=== PATIENT | male | born 1945 | race Caucasian/White ===

== ENCOUNTER 2016-08-20 13:50 | Inpatient (IN) | payer OTHER, MEDICARE ==
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
--- NOTE | ~2016-08-20 | CN ---
Consultation Report [facility] [address] [place]. [address] NAME: ROBINA KEITA : 49 STATUS : ADM IN PAT#: [id number] AGE: 71 ADM/REG DATE : 08/20/16 MR#: [id number] REPORT SERV DATE: 08/21/16 DICTATED BY: CELESTINO RICE DATE: 08/21/16 REPORT STATUS : Draft TRANSCRIBED BY: HUMA DATE: 08/21/16 CONSULTATION DATE OF CONSULTATION: HISTORY OF PRESENT ILLNESS: This patient has a history of cancer of the distal bile duct requiring surgery on 09/29/2014 with a Whipple procedure. He has been on chemotherapy. Apparently, it was at [facility] in July and had no evidence of recurrent disease. He had a temperature up to 102 at home. He denies any recent itching. His white count here was 11,600. His bilirubin is 0.5, alkaline phosphatase 1196, elevated transaminases. PHYSICAL EXAMINATION: GENERAL: Looks comfortable. VITAL SIGNS: Blood pressure 110/70. NECK: Trachea midline. CHEST: Clear. CARDIAC: Normal. ABDOMEN: Upper abdominal scar but soft, nontender. LABORATORY DATA: Review of lab, alkaline phosphatase was 258 in June, now 1196. IMPRESSION: Possible cholangitis from possible biliary obstruction. He does have a Whipple procedure, so endoscopic therapy would be quite difficult. PLAN: We will do MRCP to look for biliary obstruction. Start on Actigall to improve bile flow. We will follow along with you. Thank you for this interesting consult. /HUMA Celestino Rice M.D. / [id number]
--- NOTE | ~2016-08-20 | DS ---
Discharge Summary [facility] [address] [place]. [address] NAME: ROBINA KEITA : 49 STATUS : DIS IN PAT#: [id number] AGE: 71 ADM/REG DATE : 08/20/16 MR#: [id number] REPORT SERV DATE: 10/04/16 DICTATED BY: REGINA KIDD II DATE: 10/03/16 REPORT STATUS : Draft TRANSCRIBED BY: MODL DATE: 10/03/16 ADMISSION DATE: 08/20/2016 DISCHARGE DATE: 08/23/2016 DISCHARGE DIAGNOSES: 1. Acute cholangitis. 2. Elevated LFTs. 3. History of cholangiocarcinoma status post Whipple with no evidence of recurrent disease. 4. Diabetes mellitus type 1. 5. Hypertension. 6. Reactive thrombocytosis. CONSULTS: Dr. Bal. BRIEF HISTORY OF PRESENT ILLNESS: The patient is a 71-year-old male with the above history who presented to [facility] due to night sweats, chills, and fever. For detailed history and physical examination, please see Alba Marcano's note from 08/20/2016. HOSPITAL COURSE: On admission, the patient's LFTs were elevated with alkaline phosphatase of 1200 and mildly elevated AST and ALT. His white count was mildly elevated at 11, and Dr. Bal was consulted. Dr. Bal ordered an MRCP which did not show any evidence of obstruction. He had previously been placed on Zosyn on admission as well. With IV fluids and Zosyn, the patient's LFTs seemed to improve. His T. bilirubin was never really elevated, and his alkaline phosphatase trended down to about 700, now his AST and ALT are within normal limits. Otherwise, at this point, the patient has no significant complaints and feels well. Tolerating his diet. Dr. Bal recommended continuing Augmentin and Actigall. Otherwise, the patient is stable for discharge, and we will continue his home medications. DISCHARGE MEDICATIONS: 1. Tylenol 1000 mg p.o. b.i.d. p.r.n. 2. Augmentin 875 mg p.o. b.i.d. 3. Amitriptyline/chlordiazepoxide one tab p.o. daily. 4. Zetia 10 mg p.o. at bedtime. 5. Lantus 18 units subcu at bedtime. 6. Humalog subcu before meals per sliding scale. 7. Multivitamin daily. 8. Benicar 40 mg p.o. at bedtime. 9. Crestor 5 mg p.o. at bedtime. 10.Flomax 0.4 mg p.o. at bedtime. 11.Actigall 600 mg p.o. b.i.d. 12.Creon 24,000 cap 4 caps p.o. before meals. DISCHARGE INSTRUCTIONS: The patient will follow with Dr. Clark 09/13/2016. Discharge Summary [address] [address] NAME: ROBINA KEITA : 49 STATUS : DIS IN PAT#: [id number] AGE: 71 ADM/REG DATE : 08/20/16 MR#: [id number] REPORT SERV DATE: 10/04/16 DICTATED BY: REGINA KIDD II DATE: 10/03/16 REPORT STATUS : Draft TRANSCRIBED BY: HUMA DATE: 10/03/16 EMIGDIO/HUMA Regina Kidd II, MD / [id number] CC: MD Toney Bermudez II, M.D.
[~2016-08-20 13:50] MED LIST: AMIT10 PO; AMITRIP PO; ASAB PO; BENICAR HCT1 TA1 PO; BENICAR20 PO; BENICAR40 PO; CDP PO; CREON12000 UNT PO; CREON24000 UNT PO; CRESTOR40 MG PO; CRESTOR5 MG PO; FLOMAX4 PO; LEVSINTAB SL; LIMBITROL1 TAB PO; MELA3 PO; METAMUCIL CAN7 OZ PO; MULTIPLE VIT PO; PEPCID40 MG PO; PROBIOTIC PO; TOPXL25 PO; VIBERZI PO; VITC500 PO; ZETIA PO
[2016-08-20] MEDS ORDERED: THERGRANM PO (17:07)
[2016-08-20] MEDS ORDERED: CRESTOR5 MG PO (17:07)
[2016-08-20] MEDS ORDERED: BENICAR40 PO (17:07)
[2016-08-20] MEDS ORDERED: AMITRIP PO (17:07)
[2016-08-20] MEDS ORDERED: CDP PO (17:07)
[2016-08-20] MEDS ORDERED: ZETIA PO (17:07)
[2016-08-20] MEDS ORDERED: FLOMAX4 PO (17:08)
[2016-08-20] MEDS ORDERED: HUMALOG SC (17:09)
[2016-08-20] MEDS ORDERED: CREON PO (17:09)
[2016-08-20] MEDS ORDERED: ACET500CAP PO (17:09)
[2016-08-20] MEDS ORDERED: LANTUS SC (17:10)
[2016-08-20 18:43] LABS: CREATININE 0.85 MG/DL (0.70-1.30); GFR AFRICAN AMERICAN 103 ML/MIN (>=60); GFR NON AFRICAN AMERICAN 89 ML/MIN (>=60)
[2016-08-20 19:09] LABS: MEAN CORPUS HGB CONC 33.8 g/dL (32.0-36.0); MEAN PLATELET VOLUME 9.9 fL (9.2-13.0); NUCLEATED RED BLOOD CELLS 0.3 /100WBC (0-0)
[2016-08-20 19:10] LABS: HEMATOCRIT 26.6 % (40.0-51.0); MEAN CORPUSCULAR HEMOGLOB 28.6 pg (26.0-34.0); MEAN CORPUSCULAR VOLUME 84.4 fL (80-100); PLATELET COUNT 936 10/3/uL (150-400); RBC DISTRIBUTION WIDTH 19.2 % (12.0-16.0); RED CELL COUNT 3.15 10/6/uL (4.7-6.1); WHITE BLOOD CELLS 11.6 10/3/uL (4.5-10.5)
[2016-08-20 19:11] LABS: MANUAL DIFF YES %
[2016-08-20 19:19] LABS: BAND NEUTROPHILS 5 %; BASOPHILS 2 %; BASOPHILS ABSOLUTE (CALC) 0.23 10/3/uL (0.0-0.16); EOSINOPHILS 1 %; EOSINOPHILS ABSOLUTE (CALC) 0.12 10/3/uL (0.0-0.53); IMMATURE GRANS ABSOLUTE (CALC) 0.23 10/3/uL (0.0-0.11); LYMPHOCYTES 15 %; LYMPHOCYTES ABSOLUTE (CALC) 1.74 10/3/uL (0.67-4.30); METAMYELOCYTES 2 %; MONOCYTES 6 %; NEUTROPHILS ABSOLUTE (CALC) 8.58 10/3/uL (2.02-8.40); SEGMENTED NEUTROPHIL (0) 69 %; TARGET CELLS OCC (1-2/OIF) (0-1/OIF); TOTAL NUCLEATED CELLS 100
[2016-08-20 19:20] LABS: TEARDROP SHAPED RBCS FEW (3-10/OIF)
[2016-08-20 19:21] LABS: BURR CELLS 1+ (3-10/OIF) (0-2/OIF); MACROCYTES 1+ (5-10/OIF) (0-5/OIF)
[2016-08-20 21:32] LABS: A/G RATIO 0.7 (0.7-1.9); ALBUMIN 2.5 G/DL (3.5-5.0); ALKALINE PHOSPHATASE 1196 U/L (45-117); BUN (BLOOD UREA NITROGEN) 12 MG/DL (6-23); CALCIUM, SERUM 8.1 MG/DL (8.5-10.4); CHLORIDE, SERUM 98 MMOL/L (96-112); CO2 (CARBON DIOXIDE) 24 MMOL/L (24-34); GLOBULIN 3.6 G/DL (2.5-4.1); GLUCOSE, SERUM 237 MG/DL (60-99); POTASSIUM, SERUM 4.4 MMOL/L (3.5-5.3); SGOT(AST) 286 U/L (5-40); SGPT(ALT) 163 U/L (5-65); SODIUM, SERUM 132 MMOL/L (135-148); TOTAL BILIRUBIN 0.5 MG/DL (0-1.2); TOTAL PROTEIN 6.1 G/DL (6.0-8.5)
[2016-08-21 05:50] LABS: ASCORBIC ACID (UR NOT ORDER) NEG (NEG); BILIRUBIN, URINE NEGATIVE (NEG); KETONE, URINE NEGATIVE (NEG); LEUKOCYTE ESTERASE(NOT OR NEG (NEG); WBC (NOT ORDERED) (RFLEX) < 1 (0-5)
[2016-08-21 17:44] LABS: A/G RATIO 0.7 (0.7-1.9); ALBUMIN 2.3 G/DL (3.5-5.0); ALKALINE PHOSPHATASE 992 U/L (45-117); BUN (BLOOD UREA NITROGEN) 11 MG/DL (6-23); CALCIUM, SERUM 8.2 MG/DL (8.5-10.4); CHLORIDE, SERUM 105 MMOL/L (96-112); CO2 (CARBON DIOXIDE) 25 MMOL/L (24-34); CREATININE 0.78 MG/DL (0.70-1.30); GFR AFRICAN AMERICAN 107 ML/MIN (>=60); GFR NON AFRICAN AMERICAN 92 ML/MIN (>=60); GLOBULIN 3.4 G/DL (2.5-4.1); GLUCOSE, SERUM 85 MG/DL (60-99); POTASSIUM, SERUM 3.7 MMOL/L (3.5-5.3); SGOT(AST) 60 U/L (5-40); SGPT(ALT) 88 U/L (5-65); SODIUM, SERUM 138 MMOL/L (135-148); TOTAL BILIRUBIN 0.3 MG/DL (0-1.2); TOTAL PROTEIN 5.7 G/DL (6.0-8.5)
[2016-08-22 05:05] LABS: HEMATOCRIT 25.3 % (40.0-51.0); HEMOGLOBIN 8.5 g/dL (13.6-17.8); MEAN CORPUS HGB CONC 33.6 g/dL (32.0-36.0); MEAN CORPUSCULAR HEMOGLOB 28.6 pg (26.0-34.0); MEAN CORPUSCULAR VOLUME 85.2 fL (80-100); MEAN PLATELET VOLUME 9.2 fL (9.2-13.0); NUCLEATED RED BLOOD CELLS 0.3 /100WBC (0-0); RBC DISTRIBUTION WIDTH 19.7 % (12.0-16.0); RED CELL COUNT 2.97 10/6/uL (4.7-6.1); WHITE BLOOD CELLS 9.9 10/3/uL (4.5-10.5)
[2016-08-22 05:07] LABS: MANUAL DIFF YES %; PLATELET COUNT 964 10/3/uL (150-400)
[2016-08-22 05:15] LABS: ANISOCYTOSIS 1+ (5-10/OIF) (0-5/OIF); BAND NEUTROPHILS 4 %; BASOPHILS 1 %; EOSINOPHILS 1 %; LYMPHOCYTES 5 %; METAMYELOCYTES 5 %; MONOCYTES 13 %; MONOCYTES ABSOLUTE (CALC) 1.29 10/3/uL (0.21-1.20); NEUTROPHILS ABSOLUTE (CALC) 7.43 10/3/uL (2.02-8.40); SEGMENTED NEUTROPHIL (0) 71 %; TOTAL NUCLEATED CELLS 100
[2016-08-22 05:31] LABS: A/G RATIO 0.6 (0.7-1.9); ALBUMIN 2.2 G/DL (3.5-5.0); BUN (BLOOD UREA NITROGEN) 11 MG/DL (6-23); CALCIUM, SERUM 7.9 MG/DL (8.5-10.4); CHLORIDE, SERUM 103 MMOL/L (96-112); CO2 (CARBON DIOXIDE) 24 MMOL/L (24-34); CREATININE 0.89 MG/DL (0.70-1.30); GFR AFRICAN AMERICAN 101 ML/MIN (>=60); GFR NON AFRICAN AMERICAN 87 ML/MIN (>=60); GLOBULIN 3.4 G/DL (2.5-4.1); POTASSIUM, SERUM 3.6 MMOL/L (3.5-5.3); SGOT(AST) 41 U/L (5-40); SGPT(ALT) 70 U/L (5-65); SODIUM, SERUM 137 MMOL/L (135-148); TOTAL BILIRUBIN 0.3 MG/DL (0-1.2); TOTAL PROTEIN 5.6 G/DL (6.0-8.5)
[2016-08-22 05:36] LABS: ALKALINE PHOSPHATASE 879 U/L (45-117); GLUCOSE, SERUM 138 MG/DL (60-99)
[2016-08-23 05:29] LABS: HEMATOCRIT 25.1 % (40.0-51.0); HEMOGLOBIN 8.3 g/dL (13.6-17.8); MEAN CORPUS HGB CONC 33.1 g/dL (32.0-36.0); MEAN CORPUSCULAR VOLUME 84.8 fL (80-100); MEAN PLATELET VOLUME 8.8 fL (9.2-13.0); RBC DISTRIBUTION WIDTH 19.7 % (12.0-16.0); RED CELL COUNT 2.96 10/6/uL (4.7-6.1); WHITE BLOOD CELLS 10.9 10/3/uL (4.5-10.5)
[2016-08-23 05:31] LABS: MANUAL DIFF YES %; PLATELET COUNT 996 10/3/uL (150-400)
[2016-08-23 05:45] LABS: A/G RATIO 0.7 (0.7-1.9); ALBUMIN 2.2 G/DL (3.5-5.0); BUN (BLOOD UREA NITROGEN) 9 MG/DL (6-23); CALCIUM, SERUM 7.7 MG/DL (8.5-10.4); CHLORIDE, SERUM 102 MMOL/L (96-112); CO2 (CARBON DIOXIDE) 25 MMOL/L (24-34); GFR AFRICAN AMERICAN 101 ML/MIN (>=60); GFR NON AFRICAN AMERICAN 87 ML/MIN (>=60); GLOBULIN 3.3 G/DL (2.5-4.1); GLUCOSE, SERUM 131 MG/DL (60-99); POTASSIUM, SERUM 3.8 MMOL/L (3.5-5.3); SGOT(AST) 18 U/L (5-40); SGPT(ALT) 43 U/L (5-65); SODIUM, SERUM 136 MMOL/L (135-148); TOTAL PROTEIN 5.5 G/DL (6.0-8.5)
[2016-08-23 05:50] LABS: ALKALINE PHOSPHATASE 705 U/L (45-117); TOTAL BILIRUBIN 1.1 MG/DL (0-1.2)
[2016-08-23 07:21] LABS: SEGMENTED NEUTROPHIL (0) 59 %; TOTAL NUCLEATED CELLS 100
[2016-08-23 07:22] LABS: ANISOCYTOSIS 1+ (5-10/OIF) (0-5/OIF); BAND NEUTROPHILS 11 %; EOSINOPHILS 2 %; EOSINOPHILS ABSOLUTE (CALC) 0.22 10/3/uL (0.0-0.53); HYPOCHROMIA 1+ (3-10/OIF) (0-2/OIF); IMMATURE GRANS ABSOLUTE (CALC) 0.44 10/3/uL (0.0-0.11); LYMPHOCYTES 11 %; METAMYELOCYTES 4 %; MONOCYTES 13 %; MONOCYTES ABSOLUTE (CALC) 1.42 10/3/uL (0.21-1.20); NEUTROPHILS ABSOLUTE (CALC) 7.63 10/3/uL (2.02-8.40); TARGET CELLS FEW (3-10/OIF) (0-1/OIF)
[2016-08-23 07:23] LABS: HELMET CELLS OCC (0-2/OIF); POIKILOCYTOSIS 1+ (5-10/OIF) (0-5/OIF)
[2016-08-23] MEDS ORDERED: AUG875 PO (14:25)
[2016-08-23] MEDS ORDERED: ACT300 PO (14:25)
[2017-02-08] MEDS ORDERED: HUMALOG (15:23)
[2017-02-08] MEDS ORDERED: FLOMAX4 PO (15:24)
[2017-02-17] MEDS ORDERED: HUMAPUMP SC (16:53)
[2017-02-17] MEDS ORDERED: MULTIVITAMI1 PO (16:53)
[2017-02-17] MEDS ORDERED: BENICAR40 PO (17:09)
[2017-02-17] MEDS ORDERED: CRESTOR5 MG PO (17:09)
[2017-02-17] MEDS ORDERED: FLOMAX4 PO (17:09)
[2017-02-17] MEDS ORDERED: AMITRIP PO (17:10)
[2017-02-17] MEDS ORDERED: ZETIA PO (17:10)
[2017-02-17] MEDS ORDERED: CDP PO (17:10)
[2017-02-17] MEDS ORDERED: CREON PO (17:11)
[2017-02-17] MEDS ORDERED: METAMUCIL CAN7 OZ PO (17:11)
[2017-02-19] MEDS ORDERED: MIRALAX POWDER1 PKT PO (15:45)
== END 2016-08-23 15:08 | disposition home or self-care (01) | DRG 445 ==
LOC: CDU1 13:50 → 4EA 08-21 15:29
PROVIDERS: Internal Medicine; Internal Medicine Gastroenterology
DX: K80.33 Calculus of bile duct with acute cholangitis with obstruction (principal); C24.0 Malignant neoplasm of extrahepatic bile duct; C25.2 Malignant neoplasm of tail of pancreas; M80.00XA Age-related osteoporosis with current pathological fracture, unspecified site, initial encounter for fracture; I10 Essential (primary) hypertension; E86.0 Dehydration; E10.9 Type 1 diabetes mellitus without complications
CPT/HCPCS: 74177; 74183; 80053; 81001; 82565; 82962; 84145; 85025; A9270-GY; A9581; J2543; Q9967